=== PATIENT | female | born 1995 | race Caucasian/White ===

== ENCOUNTER → 2017-05-29 16:17 | Outpatient (CLI) | payer OTHER, SELFPAY ==
[2017-05-29 17:47] LABS: Internal QC Validated? YES +Cl - CLEAR BKGD; Pregnancy, Urine Negative Negative
== END ==
PROVIDERS: Visit Provider Physician Assistant
DX: L70.0 Acne vulgaris (principal); Z79.899 Other long term (current) drug therapy
CPT/HCPCS: 81025